=== PATIENT | male | born 1990 | race Two or more races ===

== ENCOUNTER 2017-08-14 08:07 | Emergency (ER) | payer OTHER ==
[2017-08-14] MEDS ORDERED: KETOROLAC 60 MG/2 ML VIAL IM STA (08:47)
--- NOTE | 2017-08-14 08:50 | ED Physician Documentation ---
PD HPI MALE - Stated complaint Stated Complaint: RT SIDE PX - Chief complaint Chief Complaint: Abd Pain - History obtained from History obtained from: Patient - History of Present Illness Timing - onset: How many weeks ago (1) Timing - duration: Weeks (1) Timing - details: Abrupt onset, Still present Associated symptoms: Testiclar pain. 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 He has been into see the flight surgeon, was examined and he was told he has some hernia on that side and an ultrasound of the scrotum was scheduled for 1 week. The patient is in the emergency department this morning unable to sleep last night. He denies any discharge he states that he has not been sexually active recently and when he is standing up his pain is much worse. He denies any palpable mass in the area. Review of Systems Constitutional: denies: Fever Eyes: denies: Decreased vision Ears: denies: Ear pain Nose: denies: Congestion Throat: denies: Sore throat Cardiac: denies: Chest pain / pressure, Palpitations Respiratory: denies: Dyspnea, Cough GI: denies: Abdominal Pain, Nausea, Vomiting : reports: Testicular pain. denies: Dysuria, Frequency, Discharge, Testicular mass Skin: denies: Rash Musculoskeletal: denies: Neck pain, Back pain, Extremity pain PD PAST MEDICAL HISTORY - Past Medical History Past Medical History: No - Present Medications Home Medications: Ambulatory Orders Medication Instructions Recorded Confirmed Doxycycline Hyclate 100 mg PO BID #20 capsule 08/14/17 - Allergies Allergies/Adverse Reactions: Allergies Allergy/AdvReac Type Severity Reaction Status Date / Time shrimp Allergy Anaphylaxis Verified 08/14/17 08:17 - Social History Does the pt smoke?: No Smoking Status: Never smoker PD ED PE NORMAL - Vitals Vital signs reviewed: Yes (hypertensive ) - General General: Alert and oriented X 3, No acute distress, Well developed/nourished - HEENT HEENT: Atraumatic, PERRL, EOMI - Respiratory Respiratory: No respiratory distress - Male Male : Other (The testes are descended bilaterally and are not enlarged or swollen. The right testicle is tender and the epidydimus is swollen and tender. There is no hernia mass present but there is a palpable hernia sac with valsalva ) - Derm Derm: Normal color, Warm and dry, No rash - Extremities Extremities: No deformity, No edema - Neuro Neuro: Alert and oriented X 3, No motor deficit, No sensory deficit, Normal speech Eye Opening: Spontaneous Motor: Obeys Commands Verbal: Oriented GCS Score: 15 - Psych Psych: Normal mood, Normal affect Results - Vitals Vitals: Vital Signs - 24 hr 08/14/17 08/14/17 08:14 10:08 Temperature 36.5 C 36.3 C L Heart Rate 61 84 Respiratory 16 14 Rate Blood Pressure 108/94 H 131/102 H O2 Saturation 98 96 Oxygen O2 Source Room air - Rads (name of study) scrotal ultrasound Radiology: Prelim report reviewed (Impression: Normal right scrotum, testicle and epididymis. No demonstrate a cause for right testicle/epididymal pain. Possible early left varicocele. Otherwise unremarkable left scrotum.), EMP read indepedently, See rad report PD MEDICAL DECISION MAKING - ED course Complexity details: reviewed results, re-evaluated patient, considered differential, d/w patient ED course: 27-year-old male with right sided inguinal pain does not have incarcerated hernia he does have herniation with Valsalva and he has pain along the epididymis on the right side there is no evidence for epididymitis on ultrasound and there is a typical varicocele on the left side. This does not need further evaluation. The right inguinal pain will need to be addressed further. Departure - Departure Disposition: 01 Home, Self Care Clinical Impression: Epididymitis Inguinal hernia Qualifiers: Obstruction and gangrene presence: without obstruction or gangrene Laterality: unilateral Recurrence: not specified as recurrent Qualified Code(s): K40.90 - Unilateral inguinal hernia, without obstruction or gangrene, not specified as recurrent Instructions: ED Epididymitis, ED Hernia Inguinal Follow-Up: [facility] [Provider Group] Prescriptions: Doxycycline Hyclate 100 mg PO BID #20 capsule Forms: Activity restrictions
--- NOTE | 2017-08-14 10:32 | Ultrasound Report ---
EXAM: SCROTAL ULTRASOUND EXAM DATE: 08/14/2017 09:52 AM. CLINICAL HISTORY: Right testicle/epididymal pain in a 27-year-old male. COMPARISON: None. TECHNIQUE: Real-time scanning was performed with static images obtained on an emergent basis. Both co adam-flow and Doppler spectral analysis were utilized. FINDINGS: Right: Testis: 4.7 x 2.1 x 2.9 cm. Normal size and echotexture. No mass, calcification, or abnormal blood fl ow. Epididymis: 3.7 x 1.0 x 1.6 cm. Normal size and echotexture. No mass or abnormal blood flow. Hydrocele: None. Varicocele: None. Left: Testis: 4.4 x 2.6 x 3.0 cm. Normal size and echotexture. No mass, calcification, or abnormal blood fl ow. Epididymis: 2.4 x 0.9 x 1.6 cm. Normal size and echotexture. No mass or abnormal blood flow. Hydrocele: None. Varicocele: Mildly prominent vessels under 3 mm in diameter suggesting possible early varicocele. Other: No evident hernia in the right groin region. IMPRESSION: Normal right scrotum, testicle and epididymis. No demonstrated cause for right testicle/e pididymal pain. Possible early left varicocele. Otherwise unremarkable left scrotum. [facility] Referring Provider Line: [phone] SITE ID: [id number]
[2017-08-14 11:09] VITALS: BP 102/87
== END 2017-08-14 11:09 | disposition home or self-care (01) ==
LOC: ED 08:07
DX: N45.1 Epididymitis (principal); K40.90 Unilateral inguinal hernia, without obstruction or gangrene, not specified as recurrent
CPT/HCPCS: 76870; 93976; 96372; 99283